=== PATIENT | male | born 1980 | race Caucasian/White ===

== ENCOUNTER 2021-03-31 03:12 | Emergency (ER) | payer SELFPAY ==
[2021-03-31] MEDS ORDERED: Sodium Chloride 0.9% 10 ML Syringe FLUSH PRN (03:19)
[2021-03-31] MEDS ORDERED: Morphine 4 MG/ML VIAL IVPUSH ONE (03:33)
[2021-03-31] MEDS ORDERED: Ondansetron 4 MG/2 ML SDV IVPUSH ONE (03:33)
[2021-03-31] MEDS ORDERED: Thiamine 200 MG/2 ML MDV IVPUSH ONE (03:41)
[2021-03-31] MEDS: Sodium Chloride 0.9% 1,000 ML IV SCH ×2 (03:41→04:26)
== END 2021-03-31 09:27 | disposition home or self-care (01) ==
LOC: FB.ED 03:12
DX: F10.129 Alcohol abuse with intoxication, unspecified (principal); Y90.0 Blood alcohol level of less than 20 mg/100 ml
CPT/HCPCS: 36415; 80053; 80307; 82150; 83690; 85025; 96374; 99284-25; J3411; J7030

== ENCOUNTER 2024-12-22 11:55 | Inpatient (IN) | payer MEDICAID ==
[2024-12-22] MEDS ORDERED: Sodium Chloride 0.9% 10 ML Syringe FLUSH PRN (11:58)
[2024-12-22 12:08] LABS: BASOPHILS ABSOLUTE AUTO 0.1 x10-3/uL (0.0-0.3); BASOPHILS PERCENT AUTO 1.0 % (0.3-3.8); EOSINOPHILS ABSOLUTE AUTO 0.1 x10-3/uL (0.0-0.6); EOSINOPHILS PERCENT AUTO 1.2 % (0.1-6.8); LYMPHOCYTES ABSOLUTE AUTO 2.5 x10-3/uL (0.5-4.5); LYMPHOCYTES PERCENT AUTO 28.2 % (15.8-45.3); MEAN PLATELET VOLUME 7.5 fL (6.7-11.0); MONOCYTES ABSOLUTE AUTO 1.4 x10-3/uL (0.0-1.2); MONOCYTES PERCENT AUTO 15.2 % (5.5-15.2); NEUTROPHILS ABSOLUTE AUTO 4.9 x10-3/uL (1.7-6.9); NEUTROPHILS PERCENT AUTO 54.4 % (40.3-71.8); PLATELET COUNT,PLT 175 x10(3)uL (117-477); RED CELL DISTRIBUTION WIDTH 18.0 % (12.4-15.0); WHITE BLOOD CELL COUNT,WBC 9.0 x10-3/uL (3.2-10.1)
[2024-12-22] MEDS: LORazepam 2 MG/ML SDV IVPUSH ONE (12:10)
[2024-12-22 12:11] LABS: BLOOD UREA NITROGEN,BUN 13 mg/dL (7-18); CARBON DIOXIDE,CO2 19 mmol/L (21-32); CHLORIDE,CL 94 mmol/L (100-110); CREATININE 1.0 mg/dL (0.70-1.30); ESTIMATED GFR 96 mL/min (>60); GLUCOSE RANDOM 186 mg/dL (80-116); POTASSIUM,K 3.7 mmol/L (3.5-5.3); SODIUM,NA 134 mmol/L (135-145)
[2024-12-22 12:12] LABS: RED BLOOD CELL COUNT 4.89 x10(6)uL (3.90-5.90)
[2024-12-22 12:22] LABS: A/G RATIO 1.0; BILIRUBIN TOTAL 0.8 mg/dL (0.1-1.3); PROTEIN TOTAL,TP 8.6 g/dL (6.0-8.0)
[2024-12-22 12:46] LABS: ALANINE AMINOTRANSFERASE,ALT 161 U/L (12-36); ASPARTATE AMNIOTRANSFERASE,AST 206 IU/L (5-25); INR 0.98 (1.00-1.24); PTT,PARTIAL THROMBOPLSTIN TIME 23.4 SECONDS (24.4-33.2)
[2024-12-22 12:56] LABS: PHOSPHORUS 3.5 mg/dL (2.6-4.6)
[2024-12-22 13:21] LABS: CREATINE KINASE,CK 827.0 IU/L (60-160)
[2024-12-22] MEDS: hydrALAZINE 20 MG/ML SDV IVPUSH STA (13:29)
[2024-12-22 14:57] LABS: AMPHETAMINES SCREEN, URINE NEGATIVE (NEGATIVE); BUPRENORPHINE SCREEN,URINE NEGATIVE (NEGATIVE); METHADONE SCREEN, URINE NEGATIVE (NEGATIVE); METHAMPHETAMINE SCREEN, URINE NEGATIVE (NEGATIVE); OXYCODONE SCREEN,URINE NEGATIVE (NEGATIVE)
[2024-12-22] MEDS: Magnesium Sulfate 2 GM/50 mL 2 GM in Premix Bag 1 BAG IV ONE (15:10)
[2024-12-22] MEDS ORDERED: Ondansetron 4 MG Tab.DIS PO PRN (17:18)
[2024-12-22] MEDS ORDERED: LORazepam 2 MG/ML SDV IV PRN ×2 (17:24)
[2024-12-22] MEDS ORDERED: LORazepam Conc Solution 2 MG/ML 30 ML Bottle PO PRN (18:03)
[2024-12-23 06:45] LABS: BASOPHILS ABSOLUTE AUTO 0.0 x10-3/uL (0.0-0.3); BASOPHILS PERCENT AUTO 0.4 % (0.3-3.8); EOSINOPHILS ABSOLUTE AUTO 0.1 x10-3/uL (0.0-0.6); EOSINOPHILS PERCENT AUTO 1.2 % (0.1-6.8); LYMPHOCYTES ABSOLUTE AUTO 0.8 x10-3/uL (0.5-4.5); LYMPHOCYTES PERCENT AUTO 13.2 % (15.8-45.3); MEAN PLATELET VOLUME 7.9 fL (6.7-11.0); MONOCYTES ABSOLUTE AUTO 0.9 x10-3/uL (0.0-1.2); MONOCYTES PERCENT AUTO 14.7 % (5.5-15.2); NEUTROPHILS ABSOLUTE AUTO 4.1 x10-3/uL (1.7-6.9); NEUTROPHILS PERCENT AUTO 70.5 % (40.3-71.8); PLATELET COUNT,PLT 123 x10(3)uL (117-477); RED CELL DISTRIBUTION WIDTH 18.0 % (12.4-15.0); WHITE BLOOD CELL COUNT,WBC 5.9 x10-3/uL (3.2-10.1)
[2024-12-23 06:53] LABS: RED BLOOD CELL COUNT 4.67 x10(6)uL (3.90-5.90)
[2024-12-23 06:58] LABS: A/G RATIO 0.9; ALANINE AMINOTRANSFERASE,ALT 116 U/L (12-36); ASPARTATE AMNIOTRANSFERASE,AST 111 IU/L (5-25); BILIRUBIN TOTAL 1.1 mg/dL (0.1-1.3); BLOOD UREA NITROGEN,BUN 8 mg/dL (7-18); CARBON DIOXIDE,CO2 26 mmol/L (21-32); CHLORIDE,CL 98 mmol/L (100-110); CREATININE 0.5 mg/dL (0.70-1.30); EST CRCL DRUG DOSING (CG) 196.69 mL/min; ESTIMATED GFR 130 mL/min (>60); GLUCOSE RANDOM 87 mg/dL (80-116); POTASSIUM,K 3.8 mmol/L (3.5-5.3); PROTEIN TOTAL,TP 8.1 g/dL (6.0-8.0); SODIUM,NA 135 mmol/L (135-145)
[2024-12-23 07:01] LABS: CREATINE KINASE,CK 787 IU/L (60-160)
[2024-12-24 19:58] LABS: HEPATITIS A ANTIBODY, IGM Negative (Negative); HEPATITIS B CORE ANTIBODY,IGM Negative (Negative); HEPATITIS C AB CIA INTERP Negative (Negative); HEPATITIS C ANTIBODY CIA INDEX <0.02 IV
[2024-12-24 20:00] LABS: HEPATITIS B SURFACE ANTIBODY <3.10 IU/L
[2024-12-24 20:50] LABS: HEPATITIS A ANTIBODIES, TOTAL Positive (Negative)
[2024-12-24 21:05] LABS: HEPATITIS BE ANTIGEN Negative (Negative)
== END 2024-12-23 15:20 | disposition left against medical advice (07) | DRG 894 ==
LOC: FB.ED 11:55 → FB.MS 16:32
PROVIDERS: ADMIT Emergency Medicine; ATTEND Family Medicine
PROC: HZ2ZZZZ Detoxification Services for Substance Abuse Treatment (ICD-10-PCS; principal; 2024-12-22)
DX: F10.239 Alcohol dependence with withdrawal, unspecified (principal); I16.9 Hypertensive crisis, unspecified; K70.9 Alcoholic liver disease, unspecified; E83.42 Hypomagnesemia; T79.6XXA Traumatic ischemia of muscle, initial encounter; R56.9 Unspecified convulsions; E86.0 Dehydration
CPT/HCPCS: 36415; 70450; 71045; 80053; 80074; 80307; 82550; 83735; 84100; 85025; 85610; 85730; 86705; 86706; 86708; 87350; 99223; 99238; A9270-GY; J0360; J1920; J2060; J3360; J3411; J3475; J7030; J7050